=== PATIENT | male | born 1970 | race American Indian/Alaskan Native ===

== ENCOUNTER 2019-02-01 16:04 | Emergency (ER) | payer SELFPAY ==
[2019-02-01 17:29] VITALS: BP 167/101
--- NOTE | 2019-02-01 17:32 | Emergency Department Report ---
Blank Doc - Documentation Documentation: This is a 48-year-old male that presents with left shoulder pain. Denies any CP or SOB. This initial assessment/diagnostic orders/clinical plan/treatment(s) is/are subject to change based on patient's health status, clinical progression and re- assessment by fellow clinical providers in the ED. Further treatment and workup at subsequent clinical providers discretion. Patient/guardians urged not to elope from the ED as their condition may be serious if not clinically assessed and managed. Initial orders include: 1- Patient sent to [facility] for further evaluation and treatment 2- xrays
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
== END 2019-02-01 20:20 | disposition left against medical advice (07) ==
LOC: ED 16:04
DX: M25.512 Pain in left shoulder (principal); Z53.21 Procedure and treatment not carried out due to patient leaving prior to being seen by health care provider